=== PATIENT | female | born 1975 | race Caucasian/White ===

== ENCOUNTER 2025-10-20 02:19 | Emergency (ER) | payer BC, SELFPAY ==
--- OUTSIDE RECORDS SUMMARY | 2025-08-14 04:15 | XMS_ITS ---
Author Organization [facility] Address [address] [facility] [address] [place] [address] Care Team Providers Care Clinic Cma Name Role Phone Deep Jessica Unavailable [phone] REASON FOR VISIT Annual Social History Sex Assigned At : Social History Observation Description Sex Assigned At Female Encounters Encounter Location Date Provider Diagnosis [facility] [address] [facility] [address] [place] [address] 08/14/2025 Jessica Adame Plan Of Treatment No Information Progress Notes * FLORENTINOMarianela Herrera IDOB:1975 (50 yo F)Acc No.[id number]:08/14/2025 Progress Note Patient: Marianela Rivera I Provider: Rashaun Adame APRN :1975 A ge:49 Y S ex:Female Date:08/14/2025 Address:[address] [place], [place] [id number] Subjective: * Chief Complaints: * A nnual * Electronic signature of Jenaro Adame APRN on 10/20/2025 at 02:25 AM EST Sign off status: Pending Visit Status: R /S (Rescheduled) * Provider: Rashaun Adame APRN Date: Generated for Printi ng/Faxing/eTransmitting on: 02:25 AM EST
--- OUTSIDE RECORDS SUMMARY | 2025-08-17 09:30 | XMS_ITS ---
Author Organization [facility] Address [address] [place] [address] Care Team Providers Care Lunch Cook Name Role Phone Jessica Adame Unavailable [phone] Crystal Hardy Unavailable [phone] REASON FOR VISIT Annual Social History Sex Assigned At : Social History Observation Description Sex Assigned At Female Encounters Encounter Location Date Provider Diagnosis [facility] [address] [facility] [address] [place] [address] 08/17/2025 Crystal Hardy Plan Of Treatment No Information Progress Notes * FLORENTINOMarianela Herrera IDOB:1975 (50 yo F)Acc No.[id number]:08/17/2025 Progress Note Patient: Marianela Rivera I Provider: Angel Hardy DO :1975 A ge:49 Y S ex:Female Date:08/17/2025 Address:[address] [place], [place] [id number] Subjective: * Chief Complaints: * A nnual * Images * Ins. Back Image 2025-08-12 Ins. Front Image 2025-08-12 * Electronic signature of Era Hardy DO on 10/20/2025 at 02:25 AM EST Sign off status: Pending Visit Status: N /S (No-Show) * Provider: Angel Hardy DO Date: 1 Generated for Enrique xiao/Mark/eTransmitting on: 1 02:25 AM EST
[2025-10-20] VITALS (13 sets, daily range): BP systolic 127–161; BP diastolic 83–99; PULSE 75–107; RESP 13–16; TEMP 36.8; O2SAT 94–99; BMI 30.7
--- NOTE | 2025-10-20 02:17 | ECG_ITS ---
APPROVED REPORT Exam: Resting ECG HR:105 bpm ECG Measurements Heart Rate 105 AXES ID 166 P 55 QRSd 82 QRS 45 QT 322 T 16 QTc 383 Conclusion SINUS TACHYCARDIA NONSPECIFIC T-WAVE ABNORMALITY ABNORMAL RHYTHM ECG UNCONFIRMED REPORT Electronically signed by : JANET MARIA, 10/23/2025 04:31:48
--- NOTE | 2025-10-20 02:23 | CT_ITS ---
PROCEDURE INFORMATION: Exam: CTA Chest With Contrast Exam date and time: 10/20/2025 3:26 AM Age: 50 years old Clinical indication: Pain; Chest pressure; Additional info: BIB Yu TECHNIQUE: Imaging protocol: Computed tomographic angiography of the chest with contrast. Exam focused on the arteries. 3D rendering (Not supervised by radiologist): MIP and/or 3D reconstructed images were created by the technologist. Radiation optimization: All CT scans at this facility use at least one of these dose optimization techniques: automated exposure control; mA and/or kV adjustment per patient size (includes targeted exams where dose is matched to clinical indication); or iterative reconstruction. Contrast material: ISOVUE; Contrast volume: 70 ml; Contrast route: INTRAVENOUS (IV); COMPARISON: No relevant prior studies available. FINDINGS: Pulmonary arteries: Normal. No pulmonary emboli. Aorta: Unremarkable. No aortic aneurysm. No aortic dissection. Lungs: Bibasilar atelectasis. Pleural spaces: Unremarkable. No pneumothorax. No pleural effusion. Heart: Unremarkable. No cardiomegaly. No pericardial effusion. Coronary arteries: No coronary calcium. Lymph nodes: Unremarkable. No enlarged lymph nodes. Liver: The liver is low in density. Gallbladder and biliary ducts: Cholecystectomy. Bones/joints: Unremarkable. No acute fracture. Soft tissues: Unremarkable. IMPRESSION: 1. No evidence of pulmonary embolus or other acute process. 2. Diffuse hepatic steatosis.
--- NOTE | 2025-10-20 02:25 | HMH.EDGENADL ---
Discharge Plan Disposition Patient Disposition: Home, Self-Care Prescriptions Prescriptions: No Action losartan 50 mg tablet 50 mg PO DAILY atorvastatin [Lipitor] 10 mg tablet 10 mg PO DAILY diclofenac sodium 75 mg tablet,delayed release (DR/EC) 75 mg PO BID bupropion HCl 300 mg tablet extended release 24 hr 300 mg PO DAILY Nurtec ODT 75 mg tablet,disintegrating 75 mg PO Q OTHER DAY Referrals Follow up/Referrals: Rodolfo Valentin APRN [Primary Care Provider, Medical] - See instructions Activity Restrictions/Add. Instructions Additional Instructions/Restrictions: Please follow-up with your primary care provider. Please return to the emergency department if you develop any new or worsening symptoms or become concerned for your health. Clinical Impressions Clinical Impression: Chest pain, Elevated lipase Print Language Print Language: Wolof Discharge ED Provider: Joel Jarrell Adult HPI General Chief complaint: Chest Pain Stated complaint: chest pain Time Seen by Provider: 10/20/25 02:23 History of Present Illness HPI narrative: 50-year-old female with history of hypertension and hyperlipidemia presents for chest pain. Reports that her symptoms started a few hours ago. Predominantly left-sided/central. Denies any significant nausea or vomiting. She did not take anything prior to arrival. No cardiac history. Related Data Home Medications ?Medication ?Instructions ?Recorded ?Confirmed atorvastatin 10 mg tablet (Lipitor) 10 mg PO DAILY 06/27/25 06/27/25 bupropion HCl 300 mg 24 hr tablet, 300 mg PO DAILY 06/27/25 06/27/25 extended release diclofenac sodium 75 mg 75 mg PO BID 06/27/25 06/27/25 tablet,delayed release losartan 50 mg tablet 50 mg PO DAILY 06/27/25 06/27/25 rimegepant 75 mg disintegrating 75 mg PO Q OTHER DAY 06/27/25 06/27/25 tablet (Nurtec ODT) Allergies Allergy/AdvReac Type Severity Reaction Status Date / Time No Known Allergies Allergy Verified 10/20/25 02:29 [facility] Disclaimer: The information contained in this section may have been updated after the patient was seen, as this information can be updated by other users. Medical History (Updated 10/20/25 @ 05:57 by Joel Jarrell MD) Hyperlipidemia Hypertension Social History (Updated 06/27/25 @ 11:17 by CHAPITO Mathews) Smoking Status: Former smoker alcohol intake: never current occupational status: employed Travel in the last 8 weeks?: None Have you lived/traveled outside US in past 30 days?: No Contact w/someone who lives/traveled outside US past 30 days?: No Exposure to someone with infectious disease in past 14 days?: No Do you have a fever (greater than 100.4 F or 38 C)?: No Have you tested positive for COVID-19?: No Exposed to someone with COVID-19 in past 14 days?: No Do you have a sore throat?: No Do you have a cough?: No Do you have any weakness?: No Do you have any diarrhea?: No Are you experiencing any unusual bleeding?: No Do you have any muscle aches/pain?: No Do you have any abdominal pain?: No Are you experiencing loss of taste or smell?: No ROS Obtained: Yes All systems reviewed & no additional complaints except as documented Physical Exam General General appearance: alert and in no apparent distress Head Head exam: atraumatic and normocephalic Eye Eye exam: Present normal appearance, PERRL and EOMI ENT ENT exam: Present normal oropharynx and normal external ear exam Neck Neck exam: Present normal inspection and full ROM Chest Chest inspection: Present normal inspection and symmetric chest wall rise; Absent tenderness Respiratory Respiratory exam: Present normal lung sounds bilaterally; Absent respiratory distress Cardiovascular Cardiovascular exam: Present regular rate and normal rhythm Abdominal Exam Abdominal exam: Present soft; Absent distention, tenderness or guarding Extremities Exam Extremities exam: Present normal inspection; Absent edema or joint swelling Back Exam Back exam: Present normal inspection; Absent tenderness Neurological Exam Neurological exam: Present alert and oriented X3; Absent motor sensory deficit Psychiatric Psychiatric exam: Present normal affect and normal mood Skin Skin exam: Present warm, dry and normal color Lymphatic Lymphatic Findings: no adenopathy Medical Decision Making Medical Records Medical records reviewed: Yes I reviewed the patient's medical records. Screening: Per USPSTF and CDC recommendations, given the prevalence of disease in our region, it is our hospital?s policy to screen for HIV and viral Hepatitis for all patients aged 18 and over and those with ongoing risk factors. Rah Inquiry Pt receiving controlled substance: No Rah was queried for this patient: No Vital Signs: 10/20/25 02:23 10/20/25 03:11 10/20/25 03:11 Temperature 98.2 F Temperature Source Oral Pulse Rate 107 H Pulse Rate [Left] 104 H Respiratory Rate 16 15 Blood Pressure 134/86 Blood Pressure [Right Arm] 161/96 H Blood Pressure Mean 102 Blood Pressure Mean [Right Arm] 117 Blood Pressure Source [Right Arm] Automatic Cuff Blood Pressure Position [Right Arm] Sitting 02 Sat by Pulse Oximetry 99 94 L Oxygen Delivery Method Room Air Room Air 10/20/25 03:30 10/20/25 03:45 10/20/25 03:56 Temperature Temperature Source Pulse Rate 97 H Pulse Rate [Left] Respiratory Rate 14 Blood Pressure 157/97 H 133/91 H Blood Pressure [Right Arm] Blood Pressure Mean 108 103 Blood Pressure Mean [Right Arm] Blood Pressure Source [Right Arm] Blood Pressure Position [Right Arm] 02 Sat by Pulse Oximetry 95 Oxygen Delivery Method Room Air 10/20/25 03:56 10/20/25 04:00 10/20/25 04:00 Temperature Temperature Source Pulse Rate 100 H 95 H Pulse Rate [Left] Respiratory Rate 13 13 Blood Pressure 137/91 H Blood Pressure [Right Arm] Blood Pressure Mean 102 Blood Pressure Mean [Right Arm] Blood Pressure Source [Right Arm] Blood Pressure Position [Right Arm] 02 Sat by Pulse Oximetry 95 96 Oxygen Delivery Method Room Air Room Air 10/20/25 04:30 10/20/25 04:30 10/20/25 05:00 Temperature Temperature Source Pulse Rate 88 96 H Pulse Rate [Left] Respiratory Rate 14 16 Blood Pressure 144/99 H 135/83 Blood Pressure [Right Arm] Blood Pressure Mean 112 100 Blood Pressure Mean [Right Arm] Blood Pressure Source [Right Arm] Blood Pressure Position [Right Arm] 02 Sat by Pulse Oximetry 96 Oxygen Delivery Method Room Air 10/20/25 05:34 10/20/25 05:45 10/20/25 06:00 Temperature Temperature Source Pulse Rate 84 Pulse Rate [Left] Respiratory Rate 15 15 Blood Pressure 127/87 Blood Pressure [Right Arm] Blood Pressure Mean 96 Blood Pressure Mean [Right Arm] Blood Pressure Source [Right Arm] Blood Pressure Position [Right Arm] 02 Sat by Pulse Oximetry 96 Oxygen Delivery Method Room Air 10/20/25 06:00 10/20/25 06:15 Temperature Temperature Source Pulse Rate 75 89 Pulse Rate [Left] Respiratory Rate 15 15 Blood Pressure Blood Pressure [Right Arm] Blood Pressure Mean Blood Pressure Mean [Right Arm] Blood Pressure Source [Right Arm] Blood Pressure Position [Right Arm] 02 Sat by Pulse Oximetry 95 96 Oxygen Delivery Method Room Air Room Air Lab Data Lab results reviewed: Yes I reviewed the patient's lab results. Lab Results 10/20/25 02:21: WBC 17.7 H, RBC 4.24, Hgb 13.0, Hct 38.1, MCV 89.9, MCH 30.7, MCHC 34.1, RDW 12.4, Plt Count 336, MPV 10.1, Neut % (Auto) 76.3, Lymph % (Auto) 17.4, Kimble % (Auto) 4.7, Eos % (Auto) 0.6, Baso % (Auto) 0.5, Neut # (Auto) 13.5 H, Lymph # (Auto) 3.1, Kimble # (Auto) 0.8, Eos # (Auto) 0.1, Baso # (Auto) 0.1, Sodium 136, Potassium 3.5, Chloride 101, Carbon Dioxide 30, Anion Gap 8.5, BUN 12, Creatinine 0.90, Estimated Creat Clear 103, Estimated GFR 67, Est GFR ( Amer) 81, Glucose 170 H, Calcium 9.0, Total Bilirubin 0.6, AST 29, ALT 31, Alkaline Phosphatase 61, Troponin I < 0.01, Total Protein 7.6, Albumin 4.4, Globulin 3.2, Albumin/Globulin Ratio 1.4, Lipase 510 H, Serum HCG, Qual Negative, HCV Ab JOSE w/Rflx PCR Qn Negative, HIV Ag/Ab Combo Qual Negative 10/20/25 05:20: Troponin I < 0.01 10/20/25 02:21 10/20/25 02:21 Orders (Tests/Meds): ED MEDICATIONS Discontinued Medications Generic Name Dose Route Start Last Admin Trade Name Freq PRN Reason Stop Dose Admin Acetaminophen 1,000 mg 10/20/25 02:23 10/20/25 02:31 Acetaminophen 500mg Tab PO 10/20/25 02:24 1,000 mg ONCE ONE Administration Aspirin 324 mg 10/20/25 02:23 10/20/25 02:31 Aspirin 81mg Chewable Tablet PO 10/20/25 02:24 324 mg ONCE ONE Administration Belladonna Alkaloids 60 ml 10/20/25 02:23 10/20/25 02:30 Belladonna Alkaloids 60 Ml Ml PO 10/20/25 02:24 60 ml ONCE ONE Administration Iopamidol 70 ml 10/20/25 03:36 10/20/25 03:38 Iopamidol-370 (76%);100ml Bottle IV 10/20/25 03:37 70 ml ONCE ONE Administration Sodium Chloride 50 ml 10/20/25 03:36 10/20/25 03:38 0.9 % Sodium Chloride 50 Ml Vial IV 10/20/25 03:37 50 ml ONCE ONE Administration Sodium Chloride 10 ml 10/20/25 03:36 10/20/25 03:38 Sodium Chloride 0.9% 10ml Syr (Rad Only) IV 10/20/25 03:37 10 ml ONCE ONE Administration ORDERS Category Date Time Status CT angio chest PE protocol Stat Cat Scan 10/20/25 02:23 Completed CBC w/Auto Diff [Complete Blood Count Auto Diff] Stat Lab 10/20/25 02:21 Completed CMP [Comprehensive Metabolic Panel] Stat Lab 10/20/25 02:21 Completed HCG Qualitative, Serum Stat Lab 10/20/25 02:21 Completed HIV Combo Stat Lab 10/20/25 02:21 Completed Hepatitis C Ab Qual. W/ RFX Stat Lab 10/20/25 02:21 Completed Lipase Stat Lab 10/20/25 02:21 Completed Troponin I Q3H Lab 10/20/25 02:21 Completed Troponin I Q3H Lab 10/20/25 05:20 Completed ECG Data Tracing #1: Sinus tachycardia, rate of 105, nonspecific T wave abnormality in the inferior leads ECG initial impression date: 10/20/25 ECG initial impression time: 02:17 HEART Score History (anamnesis): Slightly suspicious ECG: Non-specific disturbance Age: 45-65 years Risk factors: 1-2 risk factors Troponin: </= normal limit HEART Score: 3 Medical Decision Narrative: 50-year-old female with history of hypertension presents for left-sided/central chest pain. History was obtained via interactive discussion with patient. On arrival, patient is [afebrile, hemodynamically stable, satting appropriately, alert, oriented x4, GCS 15], moving all extremities spontaneously. Full physical exam performed and significant for no abdominal tenderness, clear lungs bilaterally Differential includes but is not limited to ACS, PE, pneumonia, pleurisy. Patient was given Tylenol aspirin GI cocktail for symptomatic management and correction of underlying abnormalities. Workup initiated including CBC CMP troponin D-dimer lipase. On re-evaluation, patient [remains afebrile, HD stable.] Laboratory workup independently interpreted by me and significant for negative initial troponin, lipase mildly elevated at 510. Leukocytosis with white count of 17. Lab was unable to run a D-dimer. Given this, we will perform CTA to rule out possible PE.. Imaging independently interpreted by me and significant for no obvious PE or pneumonia. Pancreas appears normal. Status post cholecystectomy. See radiology read for full review of final results. EKG independently interpreted by me and significant for sinus tachycardia. Repeat troponin returns within normal limits. Given patient history, exam and workup, patient's presentation most likely represents chest pain of uncertain etiology. Could be mild pancreatitis, though this is not entirely consistent with her symptoms. No obvious cardiopulmonary pathology on workup. Patient is s/p cholecystectomy. She denies any significant alcohol intake, reports that she drinks only a couple drinks at a time, and very infrequently. Recommend she follow-up with PCP for reassessment, return precautions given. Procedures Risk/Benefits of Procedure(s) Were Explained: Yes Critical Care Critical Care Time Critical Care Time: No
--- OUTSIDE RECORDS SUMMARY | 2025-10-20 02:26 | XMS_ITS | Clinical Summary ---
[facility] Address [address] [place] [address] Care Team Providers Care Rack Cleaner Name Role Phone Rodolfo Valentin NABEEL Primary Care Provi danny Family History Medical History Relation Name Comments Ovarian cancer Other cousin Breast cancer Neg Hx Colon cancer Neg Hx Relation Name Status Comments Other cousin Alive Social History Tobacco Use Types Packs/Day Years Used Date Smoking Tobacco: Never Assessed Abuse Screen Answer Date Recorded Unsafe at Home or Work/School Not on file Feels Threatened by Someone? Not on file 06/2023 Does Anyone Keep You from Co ntacting Others or Doint Things Outside the Home? Not on file 07/30/2023 Physical Sign of Abuse Present Not on file 1 Housing Stability Answer Date Recorded Current Living Arrangements Not on file 06/2023 Potentially Unsafe Housing Conditions Not on saray e 07/30/2023 Family and Community Support Answer Keo e Recorded Help with Day-to-Day Activities Not on file 07/30/2023 Lonely or Isolated Not on file 07/30/2023 Employment Answer Date Recorded Do you want help finding or keeping work or a edilia b? Not on file 07/30/2023 Disabilities Answer Date Recorded Concentrating, Remembering, or Making Decisions Difficulty Not on file 07/30/2023 Doing Errands Independently Difficulty Not on fi le 07/30/2023 Education Answer Date Recorded Help with school or training? Not on file Preferred Language Not on file 07/30/2023 Comments No Sex and Gender Information Value Date Recorded Sex Assigned at Not on file Legal Sex Female 11:49 AM EDT Gender Identity Not on file Sexual Orientation Not on file Plan of Treatment Health Maintenance Due Date Last Done Comments ANNUAL PHYSICAL 1975 Annual Gynecologic Pelvic and Breast Exam 1975 HEPATITIS C SCREENING 1975 COLOGUARD 2021 COLON CANCER SCREENING [address] COLONOGRAPHY 2021 FECAL OCCULT BLOOD TEST 2021 FIT Testing (1 year) 2021 INFLUENZA VACCINE 05/22/2025 11/14/2016, 07/26/2015 TDAP/TD VACCINES (2 - Td or Tdap) 05/23/2026 05/23/2016 MAMMOGRAM 07/06/2027 07/06/2025, 06/22, 06/26/2023, Additional history exists COLONOSCOPY 06/14/2032 06/14/2022 COLORECTAL CANCER SCREENING 06/14/2032 Pneumococcal Vaccine 0-49 Aged Out No longer eligible based on patient's age to complete this topic Procedures Procedure Name Priority Date/Time Associated Diagnosis Comments MAMMO SCREENING DIGITAL TOMOSYNTHESIS BILATERAL W CAD Routine 07/06/2025 9:00 AM EDT Screening mammogram for breast cancer from Last 3 Months or Most Recently Relevant to Health Maintenance Results * Mammo Screening Digital Tomosynthesis Bilateral With CAD (07/06/2025 9:00 AM EDT) Anatomical Region Laterality Modality Breast N/A Mammography 07/07/2025 4:11 PM EDT Impressions 07/07/2025 4:21 PM EDT No findings suspicious for malignancy. ACR BI-RADS CATEGORY: 1, NEGATIVE RECOMMENDATION: Yearly mammogram, yearly clinical breast exam, and encourage self breast awareness. CAD was used. The standard false negative rate of mammography is between 10% and 25%. Complex patterns or increased breast density will markedly elevate the false negative rate of mammography. A letter, in lay terminology, with the results of this exam will be mailed to the patient. If there is a palpable area of concern, biopsy should be considered regardless of imaging findings. 07/07/2025 4:21 PM by Summer Hernandez MD on Narrative 07/07/2025 4:21 PM EDT ROUTINE DIGITAL SCREENING MAMMOGRAM WITH TOMOSYNTHESIS HISTORY: Routine screening. IMAGE COMPARISON: Extending to 2021. TECHNIQUE: Low dose full field digital breast tomosynthesis imaging was performed with 2D and 3D acquisitions consisting of bilateral CC and MLO views. FINDINGS: There are scattered areas of fibroglandular density. The fibroglandular pattern appears stable. There is no mass, worrisome microcalcifications, or architectural distortion to suggest development of malignancy. us Nishi Salinas MD IMG MAMMOGRAPHY ORDERABLES F inal Result from Last 3 Months or Most Recently Relevant to Health Maintenance Insurance [facility] PPO Care Teams Rack Cleaner Relationship Specialty Start Date End Date Rodolfo Valentin APRN [address] [place] [address] PCP - General Nurse Practitioner 06/26/23
--- OUTSIDE RECORDS SUMMARY | 2025-10-20 02:26 | XMS_ITS | Patient Health Record ---
Author Organization [facility] [place] Address [address] [place] [address] Care Team Providers Care Earth Mover Name Role Phone Jessica Adame Unavailable [phone] Crystal Hardy Unavailable [phone] Allergies No Known Allergies Results Component Value Reference Range Notes MAMMO SCREENING DIGITAL TON SYNTHESIS BILATERAL W CAD Reviewed date:07/09/2025 03:12:01 PM Interpretation:BIRAD 1 Negative, follow up in one year Performing Lab: Notes/Report: ROUTINE DIGITAL SCREENING MAMMOGRAM WITH TOMOSYNTHESIS HISTORY: [...] architectural distortion to suggest development of malignancy. No findings suspicious for malignancy. ACR BI-RADS [...] 4:21 PM by Summer Hernandez MD on Signed by: Summer Hernandez MD on 07/07/2025 4:21 PM Reason for Exam:->SCR MAMMO Reason For Referral No Information Medications Medication SIG (Take, Route, Frequency, Duration) Notes Start Date End Date Status Methocarbamol Active Diclofenac Active Meloxicam 15 MG Tablet 1 tablet Orally O nce a day PRN Active Losartan Potassium-HCTZ 100-25 MG Tablet 1 tablet Orally Once a day Active Wellbutrin XL 300 MG Tablet Extended Release 24 Hour 1 tablet in the morning Orally Once a day Active Nurtec 75 MG Tablet Disintegrating 1 tablet on the tongue and allow to dissolve Orally once daily or PRN migraine, do not exceed 1 per day; Duration: 23 days PRN Active Social History Tobacco Use: Social History Observation Description Date Details (start date - stop date) Never Smoker NA - NA Sex Assigned At : Social History Observation Description Sex Assigned At Female Social History Sexual History: Social Info Question Answer Notes Sexual History Had sex in the past 12 months (vaginal, oral, or anal)? Yes Drugs/Alcohol: Social Info Question Answer Notes Drugs Have you used drugs other than those for medical reasons in the past 12 months? No Alcohol Screen Did you have a drink containing alcohol in the past year? Yes How often did you have a drink containing alcohol in the past year? 2 to 4 times a month (2 points) Points 2 Interpretation Negative Tobacco Use: Social Info Question Answer Notes Tobacco Use/Smoking Are you a nonsmoker Additional Details Category Social Info Options Details Miscellaneous: Caffeine: CAFFEINE USE: 3 Problems Problem Type SNOMED Code ICD Code Onset Dates Problem Status W/U Status Risk Notes Problem Gynecological examination normal (973664879209278 ) Cervical smear, as part of routine gynecological examination (Z01.419) 06/09/20 16 Active confirmed Annual without abnormal findings Problem Refractory migraine without aura (446394501) Intractable migraine without aura and without status migrainosus (G43.019) Active confirmed Plan Of Treatment No Information Insurance Providers Payer Name Payer Address Payer Phone Subscriber Number Group Number Insured Name Patient Relationship to Insured Coverage Start Date Coverage End Date Cassandra HEREDIA [address] [place] [address] [id number] Marianela Florentino Self - patient is the insured 2 Medical (General) History Medical History History ICD Code Anxiety Stress urinary incontinence IBS UTI Yeast infections Surgical History Surgery Date(Month/Year) bladder dilated 81 [facility] oral surg. 93 cholecystectomy 2021 Hospitalization History Reason Date(Month/Year) L&D
[2025-10-20] MEDS: BELLADONNA ALKALOIDS 60 ML ML PO (02:30)
[2025-10-20] MEDS: ASPIRIN 81MG CHEWABLE TABLET 324 MG PO (02:31)
[2025-10-20] MEDS: ACETAMINOPHEN 500MG TAB 1000 MG PO (02:31)
[2025-10-20 02:55] LABS: Hematocrit 38.1 % (37.0-47.0); Hemoglobin 13.0 g/dL (12.2-16.2); Immature Granulocytes % 0.5 %; Mean Corpuscular HGB Conc 34.1 g/dL (31.8-35.4); Mean Corpuscular Hemoglobin 30.7 pg (27.0-31.2); Mean Corpuscular Volume 89.9 fl (81-99); Nucleated Red Blood Cells % 0 %; Platelet Count 336 K/mm3 (142-424); Red Blood Count 4.24 M/mm3 (4.20-5.40); Red Cell Distribution Width-SD 40.4 fL; White Blood Count 17.7 K/mm3 (4.8-10.8)
[2025-10-20 03:06] LABS: HCG Qualitative, Serum Negative (Negative)
[2025-10-20 03:08] LABS: Alanine Aminotransferase 31 U/L (12-78); Albumin Level 4.4 g/dl (3.5-5.0); Albumin/Globulin Ratio 1.4 (1.1-1.8); Alkaline Phosphatase 61 U/L (38-126); Anion Gap 8.5 mEq/L (5-15); Aspartate Amino Transferase 29 U/L (14-36); Bilirubin,Total 0.6 mg/dl (0.2-1.3); Blood Urea Nitrogen 12 mg/dl (7-17); Calcium 9.0 mg/dl (8.4-10.2); Carbon Dioxide 30 mmol/L (22.0-30.0); Chloride 101 mmol/L (98-107); Creatinine Clearance Estimated 103 mL/min (50-200); Creatinine,Serum 0.90 mg/dl (0.52-1.04); Estimated Glomerular Filt Rate 67 ml/min (>60); GFR (African American) 81 ML/MIN (>60); Globulin 3.2 g/dL (1.3-3.2); Glucose 170 mg/dl (74-100); Lipase 510 U/L (23-300); Potassium 3.5 mmoL/L (3.5-5.1); Sodium 136 mmol/L (136-145); Total Protein,Serum 7.6 g/dl (6.3-8.2)
[2025-10-20 03:31] LABS: Troponin I < 0.01 ng/ml (0.00-0.034)
[2025-10-20] MEDS: 0.9 % SODIUM CHLORIDE 50 ML VIAL IV (03:38)
[2025-10-20] MEDS: IOPAMIDOL-370 (76%);100ML BOTTLE 70 ML IV (03:38)
[2025-10-20] MEDS: SODIUM CHLORIDE 0.9% 10ML SYR (RAD ONLY) 10 ML IV (03:38)
[2025-10-20 05:06] LABS: Hepatitis C Ab Qual. W/ RFX NEGATIVE (Negative)
[2025-10-20 06:18] LABS: Troponin I < 0.01 ng/ml (0.00-0.034)
== END 2025-10-20 06:30 | disposition home or self-care (01) ==
PROVIDERS: Emergency Provider Emergency Medicine; PCP Nurse Practitioner Family
DX: R07.9 Chest pain, unspecified (principal); R79.89 Other specified abnormal findings of blood chemistry; I10 Essential (primary) hypertension; E78.5 Hyperlipidemia, unspecified; Z79.899 Other long term (current) drug therapy; Z87.891 Personal history of nicotine dependence; R00.0 Tachycardia, unspecified; Z90.49 Acquired absence of other specified parts of digestive tract
CPT/HCPCS: 71275; 80053; 83690; 84484; 84703; 85025; 86803; 87389; 93005; 99285; Q9967